=== PATIENT | female | born 1990 | race Caucasian/White ===

== ENCOUNTER 2017-01-07 09:39 | Emergency (ER) | payer OTHER ==
[~2017-01-07] VITALS: Ht 170.2 cm; Wt 65.7 kg
[~2017-01-07 09:39] MED LIST: Docusate Sodium PO; FEG324 PO; MULT-666 PO; OXYC1TAB24 PO
[2017-01-07 09:41] VITALS: BP 110/68; PULSE 106; RESP 16; O2SAT 100
--- NOTE | 2017-01-07 09:51 | ED.REPORT ---
HPI-Abd Pain F Under 40 Date of Service Jan 07, 2017 ED Provider: Dr. Welch Pt is a generally healthy 26 y/o female presenting to the ED c/o bilateral lower abdominal cramping worse on left onset 6 days ago. She c/o associated daily fevers up to 103.7 F, chills, VILLAGOMEZ, nausea, vomiting, watery diarrhea only after eating, bilateral flank pain, dysuria for 1 day now resolved. Pt denies sore throat, earache, hematemesis, bloody stools, vaginal discharge. She is unable to tolerate anything PO. She has a coworker as a sick contact and denies any recent injury. About 2 year ago she had an at [facility] but due to complications had to have surgery shortly afterwards at [facility] for "retained products of conception due to incomplete dilation and evacuation. Pre- existing cervical laceration". Nursing Notes Stated Complaint: FEVER,VOMITING,DIARRHEA,SIDE ACHES Chief Complaint: Female Abdominal Pain Nursing Notes Reviewed: Yes Allergies: Coded Allergies: coconut oil (Verified Allergy, Unknown, 01/26/15) Scheduled Ferrous Gluconate (Ferrous Gluconate) 324 Mg Tab 324 MG PO DAILY Use twice a day for 30 days. Beware of constipation; you may use colace as directed if constipated. Multivitamin (Once Daily) 1 Each Tablet 1 EACH PO DAILY Scheduled PRN ([Docusate Sodium]) 100 MG CAPSULE 100 MG PO BID PRN PRN For Constipation oxyCODONE-Acetaminophen 5-325 mg (oxyCODONE-Acetaminophen 5-325 mg) 1 Tab Tablet 1-2 TAB PO Q4H PRN PRN For Moderate Pain General Time Seen by MD: 09:51 Chief Complaint Abdominal pain Hx Obtained From: Patient Arrived By: Walk-in Sudden in Onset?: No Onset Occurred: 6 days ago Symptom Duration: Since onset Progression since Onset: Constant Location: : Abdomen lower Quality: Cramping Severity: Current: Moderate Severity: Maximum: Moderate Similar Sx Previous: No Past Medical History Past Medical History Denies Past Surgical History Knee Repeat suction D&C Cervical laceration repair Smoking History Never Smoker Social History Significant smoke contact working at [employer] Alcohol Use: 1-3 per week Drug Use: THC 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 Ears / Nose / Throat: Denies: Earache bilateral, Sore throat Neurologic: Reports: Headache Physical Exam Initial Vital Signs Vital Signs (First) Date Time Temp Pulse Resp B/P Pulse Ox O2 Delivery O2 Flow Rate FiO2 01/07/17 09:41 37.6 106 16 110/68 100 01/07/17 12:21 Room Air Initial VS: Reviewed, Vital signs abnormal Head / Eyes: Atraumatic, Normocephalic ENT: Mucous membranes moist, Conjunctiva normal, No scleral icterus Neck: Supple, Full range of motion Extremities: Vascular intact, Neuro intact, No swelling Neurologic: Alert, Oriented, Nonfocal Psychiatric: Mood/affect normal, Behavior normal, Normal thought content General/Constitutional: Awake, Alert, No acute distress, Cooperative, Not toxic appearing Appearance / Presentation: Positive: Ill appearing/not toxic Respiratory / Chest: Breath sounds NL, Breath sounds = bilat, No respiratory distress, No rales, No rhonchi, No wheezing, No retractions, No stridor Cardiovascular: Heart rate NL, Regular rhythm, Heart sounds NL, No murmurs Abdomen: Atraumatic, Soft, No guarding, No rebound, No distention, No palpable mass Tenderness/Guarding/Rebound: Positive: Tender LLQ... (Mild) Negative psoas sign Back: Full range of motion, Painless range of motion, No CVA tenderness Skin: Color NL, No rash, Warm Color / Condition: Positive: Diaphoresis present (mild) Interpretation & Diagnostics Interpretation & Diagnostics: US abdomen: Negative per US tech - official radiologist read pending Lab Results Interpretation Result Diagram: 01/07/17 1030 01/07/17 1030 Test 01/07/17 10:30 01/07/17 10:40 White Blood Count 16.7th/mm3 (3.8-10.1) Red Blood Count 3.87mil/mm3 (3.90-5.20) Hemoglobin 11.8g/dL (12.0-15.6) Hematocrit 34.9% (35.0-46.0) Mean Corpuscular Volume 90.2fL (81-100) Mean Corpuscular Hemoglobin 30.5pg (27.0-35.0) Mean Corpuscular Hemoglobin Concent 33.8% (32.0-37.0) Red Cell Distribution Width 13.0% (12.3-15.4) Platelet Count 300bil/L (150-400) Neutrophils (%) (Auto) 70.9% (40-74) Lymphocytes (%) (Auto) 8.9% (14-46) Monocytes (%) (Auto) 18.2% (4-12) Eosinophils (%) (Auto) 0.2% (0-5) Basophils (%) (Auto) 0.4% (0-3) Sodium Level 134mEq/L (134-144) Potassium Level 2.9mEq/L (3.5-5.2) Chloride Level 91mEq/L (97-108) Carbon Dioxide Level 27mmol/L (18-29) Blood Urea Nitrogen 7mg/dL (6-20) Creatinine 0.96mg/dL (0.57-1.00) Estimat Glomerular Filtration Rate 101mL/min (>59) Glucose Level 106mg/dL (60-99) Lactic Acid Level 1.1mmol/L (0.4-2.0) Calcium Level 9.2mg/dL (8.5-10.1) Total Bilirubin 0.6mg/dL (0.0-1.2) Aspartate Amino Transf (AST/SGOT) 9U/L (0-50) Alanine Aminotransferase (ALT/SGPT) 7U/L (0-32) Alkaline Phosphatase 68U/L (25-150) Total Protein 7.2g/dL (6.4-8.4) Albumin 3.6g/dL (3.4-5.0) Urine Color Yellow (YELLOW) Urine Appearance Hazy (CLEAR,HAZY) Urine pH 7.5 (5.0-8.0) Urine Specific [place] 1.010 (1.003-1.035) Urine Protein Tracemg/dL (NEG,TRACE) Urine Glucose (UA) Negativemg/dL (NEGATIVE) Urine Ketones Negativemg/dL (NEGATIVE) Urine Occult Blood Moderate (NEGATIVE) Urine Nitrite Negative (NEGATIVE) Urine Bilirubin Negative (NEGATIVE) Urine Urobilinogen Normalmg/dL (NORMAL) Urine Leukocyte Esterase Small (NEGATIVE) Urine RBC 0-2/hpf (0-2) Urine WBC 0-5/hpf (0-5) Urine Epithelial Cells Occasional/hpf (NONE-MOD) Urine Crystals None seen (NONE SEEN) Urine Bacteria Moderate/hpf (NONE-FEW) Urine Hyaline Casts None/lpf (NONE) Urine Granular Casts None seen (NONE SEEN) Urine Waxy Casts None seen (NONE SEEN) Urine Red Blood Cell Casts None seen (NONE SEEN) Urine White Blood Cell Casts None seen (NONE SEEN) Urine Mucus None seen (None Seen) Urine Trichomonas None seen (NONE SEEN) Urine Yeast None (NONE SEEN) Urinalysis Comment None Urine Culture Reflexed Indicated US Focused non-OB Pelvis Negative Exam Performed by: [facility] pract Exam Type: Diagnostic Clinical Category: Initial exam Exam Interpreted by: [facility] pract Re-Eval/Medical Decision Source of Hx: Old records Re-Evaluation/Progress #1: Time of Eval: 11:46 Re-Evaluation/Progress Note: Pt rechecked. Feels somewhat better. Informed pt of need for stool culture. Re-Evaluation/Progress #2: Time of Eval: 14:52 Re-Evaluation/Progress Note: Pt rechecked. Discussed findings. Informed pt of plan for discharge. Pt understands and agrees with plan for discharge. F/U instructions and RTER warnings given. All questions addressed. Consultation : Referral / Consult Name: Ritesh Sarah MD Call Returned at: 11:45 Graphic Coordinator: Agrees with eval, Agrees with plan Note: Consulted ID. Recommends stool culture. Counseled Regarding: Diagnosis, Lab results, Need for follow-up, When/why to return to ED Discharge & Departure Primary Impression: Acute abdominal pain Additional Impression: Fever Disposition: Home Discharge Condition All VS Reviewed: Yes Condition: Improved Patient Instructions: Acute Abdominal Pain (ED), Fever in Adults (ED) Additional Instructions: The cause of your symptoms is unclear, but may be caused by gastroenteritis, infection of the bowel. Labs were reassuring. The ultrasounds were also reassuring. Take Zofran every 6 hours as needed for nausea or vomiting. Take Imodium, [id number], as directed on the box as needed for diarrhea. Alternate Ibuprofen and Tylenol as directed for fever or discomfort. Follow-up with VIJAY Yo later this week or early next week for a recheck. Call to schedule an appointment. Return to the emergency department if you experience persistent high fever, worsening abdominal pain, persistent vomiting, profound weakness or lightheadedness, or for other concerning symptoms. Referrals: Virgie Yo PA-C [facility] Portions of this note were transcribed by Javed Ervin. I, Dr. Welch, personally performed the history, physical exam and medical decision-making; I reviewed and confirmed the accuracy of the information in the transcribed note. copies to: Virgie Yo PA-C, Kirk H MD Jan 07, 2017 09:51 JAVED ERVIN Jan 07, 2017 09:59
[2017-01-07] MEDS ORDERED: 0.9% Sodium Chloride 1,000 ML IV ONE (10:08)
[2017-01-07 10:53] LABS: BASOPHILS % (AUTO) 0.4 % (0-3); EOSINOPHILS % (AUTO) 0.2 % (0-5); MONOCYTES % (AUTO) 18.2 % (4-12); Mean Corpuscular Hemoglobin 30.5 pg (27.0-35.0); Mean Corpuscular Volume 90.2 fL (81-100); NEUTROPHILS % (AUTO) 70.9 % (40-74); Platelet Count 300 bil/L (150-400)
[2017-01-07 11:13] LABS: APPEARANCE,URINE HAZY (CLEAR,HAZY); COLOR,URINE YELLOW (YELLOW); PH,URINE 7.5 (5.0-8.0)
[2017-01-07 11:14] LABS: OCCULT BLOOD,URINE MODERATE (NEGATIVE); UROBILINOGEN,URINE NORMAL (NORMAL)
[2017-01-07 12:21] VITALS: BP 110/64; PULSE 81; RESP 16; O2SAT 100
[2017-01-07 15:17] VITALS: BP 127/62; PULSE 69; RESP 17; O2SAT 98
--- NOTE | 2017-01-07 16:55 | DRSVH ---
PROCEDURE: US PELVIC SONOGRAM + TRANSVAGINAL SONOGRAM INDICATIONS: abd pain, fever TECHNIQUE: Real-time scanning was performed of the pelvic organs, with image documentation. Additional endovagi nal scanning was necessary due to incomplete visualization of the adnexal and endometrial structures by transabdominal scanning. COMPARISON: None. FINDINGS: (orthogonal measurements) Uterus size: 7.9 x 3.8 x 4.6 Endometrium thickness: 4.0 mm Right ovary size: 3.8 x 2.9 x 3.2 cm. Left ovary size: 3.5 x 2.2 x 2.1 cm. Transabdominal scanning: Limited scanning through the kidneys shows no hydronephrosis. No pathologi c free abdominal or pelvic fluid. Endovaginal scanning: Uterus: Uterus is normal in size and appearance. Endometrium is within normal physiologic limits. Ovaries: Within normal physiologic limits. IMPRESSION: Small amount of non-hemorrhagic fluid adjacent to the right ovary otherwise normal exam. Dictated by: Patricio Pollard [facility] Interpreted: Jayden Chavez MD on 01/07/2017 at 13:04 Approved by: Jayden Chavez M.D. on 01/07/2017 at 16:53
--- NOTE | 2017-01-07 17:05 | DRSVH ---
PROCEDURE: US ABDOMEN INDICATIONS: abd pain, fever TECHNIQUE: Real-time scanning was performed of the abdominal and retroperitoneal organs, with image documentatio n. COMPARISON: None. FINDINGS: Liver length: 20.13 cm Gallbladder Wall Thickness: 1.70 mm CHD: 2.70 mm CBD: 4.10 mm Spleen length: 10.89 cm Right kidney length: 11.64 cm Left kidney length: 11.78 cm Aorta(Proximal): 1.67 cm Aorta(Mid): 1.31 cm Aorta(Distal): 1.49 cm RCIA: 1.00 cm LCIA: 1.09 cm Liver: Liver is normal in size and homogeneous in echotexture. Gallbladder: No gallstones identified. Normal gallbladder wall. No pericholecystic fluid. Negativ e sonographic Simmons sign. Biliary ducts: Intrahepatic bile ducts are non-dilated. Extrahepatic bile duct caliber is normal. Normal is 6-7 mm or less in diameter, or 10 mm or less post-cholecystectomy. Pancreas: Visualized portions of the pancreas are sonographically normal. Spleen: Spleen is normal in size and homogeneous in echotexture. Kidneys: Kidneys are normal in size and echotexture. No hydronephrosis or nephrolithiasis. No abraham d masses. Aorta: Visualized aorta is normal in caliber at less than 3 cm. Iliacs: Proximal common iliac arteries are normal in caliber at less than 2.5 cm. IVC: Intrahepatic inferior vena cava is patent. Miscellaneous: No free abdominal fluid. IMPRESSION: No source for vomiting and left lower quadrant pain identified. Dictated by: Patricio Pollard [facility] Interpreted: Jayden Chavez MD on 01/07/2017 at 13:05 Approved by: Jayden Chavez M.D. on 01/07/2017 at 17:03
== END 2017-01-07 15:18 | disposition home or self-care (01) ==
LOC: SED 09:39
DX: R10.32 Left lower quadrant pain (principal); R50.9 Fever, unspecified; R68.83 Chills (without fever); R51 Headache; R11.2 Nausea with vomiting, unspecified; R10.31 Right lower quadrant pain; R19.7 Diarrhea, unspecified; Z98.890 Other specified postprocedural states
CPT/HCPCS: 36415; 76700; 76830; 76856; 80053; 81000; 81025; 83605; 85025; 87040; 87086; 87088; 87507; 96360; 99285; J7030